=== PATIENT | female | born 1970 | race Caucasian/White ===

== ENCOUNTER → 2016-08-25 | Outpatient (CLI) | payer BC | LOC: LAB 11:33 | DX: R50.9 Fever, unspecified (principal) ==

== ENCOUNTER → 2023-12-08 | Outpatient (CLI) | payer BC | LOC: RAD 11:30 | DX: M25.531 Pain in right wrist (principal) ==

== ENCOUNTER 2024-04-24 19:29 | Emergency (ER) | payer BC ==
[~2024-04-24] VITALS: Ht 5 cm; Wt 71.8 kg
[2024-04-24] MEDS ORDERED: PRILOSEC 20MG20 MG PO (19:36)
[2024-04-24] MEDS ORDERED: MUCINEX 60600 MG/TA1 PO (19:36)
[2024-04-24 19:53] LABS: BASO # 0.04 K/mm3 (0.02-0.10); EOS # 0.13 K/mm3 (0.04-0.40); EOS % 1.7 % (1.0-5.0); HEMATOCRIT 41.1 % (37.0-47.0); HEMOGLOBIN 13.5 g/dL (12.5-16.0); LYMPH# 1.58 K/mm3 (1.50-4.00); MEAN CELL VOLUME 98 fl (78-100); MEAN CORPUSCULAR HEMOGLOBIN 32 pg (27-31); MEAN CORPUSCULAR HGB CONC 33 g/dL (33-37); MEAN PLATELET VOLUME 9.4 fl (7.4-10.4); MONO # 0.62 K/mm3 (0.20-0.80); NEU # 5.24 K/mm3 (1.40-6.50); PLATELET COUNT 272 K/mm3 (130-400); RED BLOOD COUNT 4.19 M/mm3 (4.10-5.30); RED CELL DISTRIBUTION WIDTH 12.4 % (11.5-14.5); WHITE BLOOD COUNT 7.6 K/mm3 (4.8-10.8)
[2024-04-24 19:57] LABS: ALBUMIN 4.5 g/dL (3.5-5.0)
[2024-04-24 19:59] LABS: CALCIUM 9.5 mg/dL (8.3-10.5)
[2024-04-24 20:00] LABS: TOTAL PROTEIN 6.8 g/dL (6.4-8.3)
[2024-04-24 20:02] LABS: TOTAL BILIRUBIN 0.4 mg/dL (0.2-1.2)
[2024-04-24 20:33] LABS: D-DIMER 0.16 mg/L FEU (0.15-0.50)
[2024-04-24] MEDS ORDERED: FLUTICASONE P15.8 ML NS (20:35)
[2024-04-24] MEDS ORDERED: ALLER-TEC10 MG PO (20:35)
[2024-04-24] MEDS ORDERED: Mag/Al Hydrox/Simeth Susp 30 ML CUP PO ONE (21:00)
[2024-04-24 21:22] VITALS: BP 112/84
== END 2024-04-24 21:24 | disposition home or self-care (01) ==
LOC: ED 19:29
PROVIDERS: Family Medicine
DX: R07.89 Other chest pain (principal); I45.10 Unspecified right bundle-branch block; J06.9 Acute upper respiratory infection, unspecified; F17.210 Nicotine dependence, cigarettes, uncomplicated